=== PATIENT | female | born 1990 | race Two or more races ===

== ENCOUNTER 2016-12-17 18:30 | Emergency (ER) | payer MEDICAID, OTHER ==
[~2016-12-17] VITALS: Ht 160 cm; Wt 57.0 kg
[2016-12-17 18:39] VITALS: BP 144/84
[2016-12-17] MEDS ORDERED: PENICILLIN G BENZATHINE 1,200,000 UNITS/2ML SYR IM ONE (19:00)
== END 2016-12-17 19:34 | disposition home or self-care (01) ==
LOC: ER 18:30
DX: J02.9 Acute pharyngitis, unspecified (principal); R07.0 Pain in throat
CPT/HCPCS: 96372; 99283; J0561